=== PATIENT | male | born 1960 | race Caucasian/White ===

== ENCOUNTER 2019-05-10 12:29 | Day surgery (SDC) | payer OTHER ==
[~2019-05-10] VITALS: Ht 167.6 cm; Wt 95.9 kg
[~2019-05-10 12:29] MED LIST: Cialis20 MG PO; DHEA25 MG; ENAL20 PO; ESCI20 PO; HYDACE5 PO; LOVA40 PO; MIRT30 PO; RXOXYACE PO; TAMS.4ER PO; TESTTP TOP; Testopel75 MG ID; VITAMIN D32000 UNIT PO; ZESTORETIC 20-251 EA PO; ZOLP10 PO
== END 2019-05-10 14:27 | disposition home or self-care (01) ==
LOC: ORSCSDS 12:29
PROVIDERS: Surgery
PROC: 0DBN8ZX Excision of Sigmoid Colon, Via Natural or Artificial Opening Endoscopic, Diagnostic (ICD-10-PCS; principal; 2019-05-10 14:00)
DX: Z12.11 Encounter for screening for malignant neoplasm of colon (principal); D12.5 Benign neoplasm of sigmoid colon; K57.30 Diverticulosis of large intestine without perforation or abscess without bleeding; I10 Essential (primary) hypertension; F32.9 Major depressive disorder, single episode, unspecified; E66.9 Obesity, unspecified; Z68.36 Body mass index [BMI] 36.0-36.9, adult; Z79.899 Other long term (current) drug therapy
CPT/HCPCS: 88305; J2704; J7120